=== PATIENT | male | born 1940 | race Native Hawaiian/Other Pacific Islander ===

== ENCOUNTER 2018-07-03 18:38 | Inpatient (IN) | payer MEDICARE, OTHER ==
[~2018-07-03] VITALS: Ht 160 cm; Wt 49.4 kg
[2018-07-03] MEDS ORDERED: PROTONIX (18:51)
[2018-07-03] MEDS ORDERED: BUDESONIDE (18:51)
[2018-07-03] MEDS ORDERED: PLAVIX (18:51)
[2018-07-03] MEDS ORDERED: LOVENOX (18:51)
[2018-07-03] MEDS ORDERED: TAMSULOSIN (18:51)
[2018-07-03] MEDS ORDERED: AMLODIPINE (18:59)
--- NOTE | 2018-07-03 19:00 | NUR ---
Medication Reconciliation Note: Per pt's family pt only takes Amlodipine daily, Protonix daily, Tamsulosin daily and Plavix prn. Doses unknown.
--- NOTE | 2018-07-03 19:10 | NUR ---
REPORT RECEIVED FROM HALINA MENDOZA, LUKASZ
--- NOTE | 2018-07-03 19:40 | NUR ---
RECEIVED PT AWAKE, ALERT, ORIENTEDX3 VIA GURNEY FROM ER. PT IS ON 5150. UNDER THE CARE OF DR. STONE AND DR. PULIDO. FAMILY AT BEDSIDE. SITTER AT BEDSIDE. DX: PSYCHOSIS. BELONGING LIST DONE. ADMISSION PROCESS DONE. RESIDENTIAL ASSESSMENT DONE. SAFETY AND COMFORT PROVIDED. WILL CONTINUE TO MONITOR Addendum: 07/04/18 at 0049 by RANI GASCA RN WRONG INPUT OF TIME.
--- NOTE | 2018-07-03 20:10 | NUR ---
REPORT GIVEN TO [facility] OVERFLOW NURSE, MAHAD
--- NOTE | 2018-07-03 20:25 | NUR ---
Pt. admitted to [facility], under care of Dr. BECKWITH/ASHOK Belongs List completed
--- NOTE | 2018-07-03 20:40 | NUR ---
RECEIVED PT AWAKE, ALERT, ORIENTEDX3 VIA GURNEY FROM ER. PT IS ON 5150. UNDER THE CARE OF DR. STONE AND DR. PULIDO. FAMILY AT BEDSIDE. SITTER AT BEDSIDE. DX: PSYCHOSIS. BELONGING LIST DONE. ADMISSION PROCESS DONE. LONG TERM ASSESSMENT DONE. SAFETY AND COMFORT PROVIDED. WILL CONTINUE TO MONITOR.
[2018-07-03 20:45] VITALS: BP 137/57
[2018-07-03] MEDS ORDERED: LORAZEPAM 0.5 MG TABLET PO PRN (21:15)
[2018-07-03] MEDS ORDERED: TEMAZEPAM 7.5 MG CAPSULE PO PRN (21:15)
[2018-07-03] MEDS ORDERED: MAGNESIUM HYDROXIDE 30 ML LIQUID UDC PO PRN (21:15)
[2018-07-03] MEDS ORDERED: MAG HYDROX/AL HYDROX/SIMETH 30 ML LIQUID UDC PO PRN (21:15)
[2018-07-03] MEDS ORDERED: ACETAMINOPHEN 325 MG TABLET PO PRN (21:15)
--- NOTE | 2018-07-04 05:33 | NUR ---
PT CELLPHONE AND 6 PIECES OF HERBAL MEDICATION THAT HAS AGUILLON WRAPPERS WERE PUT AT [facility] LOCKER #4. PT STABLE . SITTER AT BEDSIDE. WILL CONTINUE TO MONITOR.
--- NOTE | 2018-07-04 06:09 | NUR ---
PT SLEPT 4 HOURS AND 45 MINUTES. PT SHOWS NO SIGNS OF DISTRESS.SITTER AT BEDSIDE. PT COOPERATIVE WITH CARE. PRESCRIBED MEDICATION GIVEN AND PT TOLERATED IT WELL. SAFETY AND COMFORT PROVIDED. WILL ENDORSE TO INCOMING NURSE FOR CONTINUITY OF CARE.
[2018-07-04 06:36] LABS: BASOPHILS % (AUTO) 0.5 % (0.0-2.0); EOSINOPHILS # (AUTO) 0.2 K/uL (0.0-0.7); EOSINOPHILS % (AUTO) 4.6 % (0.0-7.0); HEMATOCRIT 36.8 % (36.7-47.1); HEMOGLOBIN 12.6 g/dL (12.5-16.3); LYMPHOCYTES # (AUTO) 1.5 K/uL (20.0-40.0); LYMPHOCYTES % (AUTO) 28.6 % (20.5-51.5); MEAN CORPUSCULAR HEMOGLOBIN 32.2 uug (23.8-33.4); MEAN CORPUSCULAR HGB CONC 34 g/dL (32.5-36.3); MEAN CORPUSCULAR VOLUME 93.7 fL (73.0-96.2); MONOCYTES # (AUTO) 0.6 K/uL (2.0-10.0); MONOCYTES % (AUTO) 11.6 % (0.0-11.0); NEUTROPHILS # (AUTO) 2.8 K/uL (1.8-8.9); NEUTROPHILS % (AUTO) 54.7 % (38.5-71.5); PLATELET COUNT (AUTO) 197 K/uL (152-348); RED BLOOD CELL COUNT(AUTO) 3.93 MIL/uL (4.06-5.63); WHITE BLOOD COUNT (AUTO) 5.2 K/uL (3.6-10.2)
[2018-07-04 06:45] LABS: CARBON DIOXIDE 26 mmol/L (21-32); CHLORIDE 102 mmol/L (98-107); CREATININE 1.2 mg/dL (0.6-1.3); GLUCOSE 98 mg/dL (74-106); MAGNESIUM 1.7 mg/dL (1.8-2.4); PHOSPHOROUS 3.5 mg/dL (2.5-4.9); POTASSIUM 3.9 mmol/L (3.5-5.1); UREA NITROGEN, BLOOD 22 mg/dL (7-18)
[2018-07-04 07:30] VITALS: BP 135/70
[2018-07-04] MEDS ORDERED: DUTA0.5C PO (12:16)
[2018-07-04] MEDS ORDERED: ESOM40CA PO (12:16)
[2018-07-04] MEDS ORDERED: CLOP75TA15 PO (12:16)
[2018-07-04] MEDS ORDERED: ROSU40TA PO (12:16)
[2018-07-04] MEDS ORDERED: CHOL10002 PO (12:16)
[2018-07-04] MEDS ORDERED: TAMS-3 PO (12:16)
[2018-07-04] MEDS ORDERED: AMLO1TAB36 PO (12:16)
[2018-07-04] MEDS ORDERED: FEBU40TA PO (12:16)
[2018-07-04] MEDS: QUETIAPINE FUMARATE 25 MG TABLET PO SCH ×2 (13:27→20:21)
--- NOTE | 2018-07-04 13:27 | NUR ---
Pt is currently living at home with his [[address] [place] [address]] Per pt, he would like to return home when ready for discharge. FILIPPO will speak with patient's granddaughter, Basilio ([phone]). FILIPPO will continue to collaborate with pt, family, and MD regarding appropriate discharge plans for this patient. FILIPPO will form a safe and proper discharge plan. Addendum: 07/04/18 at 1459 by ABEBE BARKLEY Initial Discharge Instructions
[2018-07-04] MEDS ORDERED: MAGNESIUM OXIDE 400 MG TABLET PO ONE (13:45)
[2018-07-04 14:29] VITALS: BP 127/59
[2018-07-04] MEDS ORDERED: [UNRECOGNIZED DRUG - OTHER] PO SCH (17:00)
[2018-07-04] MEDS ORDERED: Medication Not On Formulary EA (Esomeprazole Mag Trihydrate (Nexium) 40 MG) PO SCH (17:00)
[2018-07-04] MEDS ORDERED: AMLODIPINE PO SCH (17:00)
[2018-07-04] MEDS ORDERED: OLMESARTAN PO SCH (17:00)
[2018-07-04] MEDS: CLOPIDOGREL 75 MG TABLET PO SCH (17:20)
[2018-07-04] MEDS: CHOLECALCIFEROL 1,000 UNIT TABLET PO SCH (17:21)
[2018-07-04] MEDS: DUTASTERIDE 0.5 MG CAPSULE PO SCH (17:21)
[2018-07-04 19:58] VITALS: BP 136/65
[2018-07-04] MEDS: TAMSULOSIN HCL 0.4 MG CAP.SR.24H PO SCH (20:23)
[2018-07-04] MEDS: ATORVASTATIN 40 MG TABLET PO SCH (20:23)
[2018-07-04] MEDS ORDERED: Medication Not On Formulary EA (Rosuvastatin Calcium (Crestor) 40 MG) PO SCH (21:00)
[2018-07-05] MEDS: PANTOPRAZOLE SODIUM 40 MG TABLET.DR PO SCH (06:14)
--- NOTE | 2018-07-05 06:37 | NUR ---
No changes throughout the night. Pt remained compliant and cooperative with all care. Safe environment implemented. 1:1 sitter at bedside for safety .
[2018-07-05 07:07] VITALS: BP 135/64
[2018-07-05] MEDS: CLOPIDOGREL 75 MG TABLET PO SCH (08:31)
[2018-07-05] MEDS: DUTASTERIDE 0.5 MG CAPSULE PO SCH (08:32)
[2018-07-05] MEDS: QUETIAPINE FUMARATE 25 MG TABLET PO SCH ×2 (08:32→20:48)
[2018-07-05] MEDS: CHOLECALCIFEROL 1,000 UNIT TABLET PO SCH (08:32)
[2018-07-05] MEDS: AMLODIPINE 10 MG TABLET PO SCH (08:33)
[2018-07-05] MEDS: LOSARTAN POTASSIUM 50 MG TABLET PO SCH (08:33)
[2018-07-05 11:38] VITALS: BP 107/53
--- NOTE | 2018-07-05 12:46 | NUR ---
CALLED AND SPOKE WITH PATIENTS GRAND DAUGHTER SKYLER AND NOTIFIED HER THAT THE [facility] WANTS SOMEONE TO BRING IN PATIENTS OWN MEDICATION ULORIC SINCE IT IS NOT AVAILABLE HERE AND SHE STATED OKAY WILL BRING SOON THERE IS SOMEONE COMING HERE.
--- NOTE | 2018-07-05 15:34 | NUR ---
PATIENTS SON IS AT THE BEDSIDE AND CONFIRMED THAT THE ULORIC WILL BE BROUGHT IN BY THE GRAND DAUGHTER TOMORROW PHARMACY AWARE.
[2018-07-05 16:31] VITALS: BP 118/64
--- NOTE | 2018-07-05 18:06 | NUR ---
PATIENT ATE LARGE AMOUNTS OF FOOD BROUGHT IN BY HIS FAMILY COMFORTABLE WITH NO DISTRESS AT THIS TIME.
[2018-07-05 20:00] VITALS: BP 118/64
[2018-07-05] MEDS: TAMSULOSIN HCL 0.4 MG CAP.SR.24H PO SCH (20:43)
[2018-07-05] MEDS: ATORVASTATIN 40 MG TABLET PO SCH (20:46)
[2018-07-06] MEDS: PANTOPRAZOLE SODIUM 40 MG TABLET.DR PO SCH (06:33)
--- NOTE | 2018-07-06 06:45 | NUR ---
Pt remains pleasant and compliant with all care. Stable condition. According to granddaughter, pt has not taken Uloric medication at home for over a year, family only has empty bottle. Safe environment implemented.
--- NOTE | 2018-07-06 07:45 | NUR ---
AWAKE ALERT COOPERATIVE AND COMPLIANT WITH MEDICATIONS AND CARE DENIES SI AT THIS TIME REMAIN ON 72 HOURS HOLD WILL CONTINUE TO PROVIDE SAFE AND THERAPEUTIC ENVIRONMENT AT ALL TIMES
[2018-07-06 08:00] VITALS: BP 120/65
[2018-07-06] MEDS: CHOLECALCIFEROL 1,000 UNIT TABLET PO SCH (08:16)
[2018-07-06] MEDS: DUTASTERIDE 0.5 MG CAPSULE PO SCH (08:16)
[2018-07-06] MEDS: QUETIAPINE FUMARATE 25 MG TABLET PO SCH ×2 (08:16→20:29)
[2018-07-06] MEDS: CLOPIDOGREL 75 MG TABLET PO SCH (08:16)
[2018-07-06] MEDS: AMLODIPINE 10 MG TABLET PO SCH (08:17)
[2018-07-06] MEDS: LOSARTAN POTASSIUM 50 MG TABLET PO SCH (08:17)
--- NOTE | 2018-07-06 08:59 | NUR ---
CALLED AND NOTIFIED THE PHARMACIST THAT ACCORDING TO THE NOC RN PATIENT HAS NOT BEEN TAKING ULORIC FOR MORE THAN A YEAR NOW.
--- NOTE | 2018-07-06 09:04 | NUR ---
INFORMED DR PULIDO RE PATIENT IS USING CALAMINE LOTION BROUGHT HIS FROM HOME BUT NO ORDER AT THIS TIME AND HE STATED TO START TO THE RASHES ON HIS LEFT ARM.
[2018-07-06] MEDS ORDERED: CALAMINE LOTION 120 ML BOTTLE TOP SCH (09:30)
--- NOTE | 2018-07-06 10:03 | NUR ---
DR ARGUETA HERE TO SEE PATIENT WITH ORDER FOR 14 DAY HOLD AND NOTED MHU NOTIFIED.
[2018-07-06] MEDS: CALAMINE LOTION TOP SCH ×2 (11:16→21:30)
--- NOTE | 2018-07-06 14:00 | NUR ---
PATIENTS GRAND DAUGHTER AND SON HERE AND SEEN THE 14 DAY HOLD AND CONCERNED THAT SINCE THE PATIENT SPOKE ONLY SPANISH LANGUAGE HOW DID THE DOCTOR COMMUNICATE WITH THE PATIENT TO COME TO THE CONCLUSION OF THE WORDING OF THE HOLD SINCE THE PATIENT DID NOT SPEAK ANY AZERI ATTEMPTS TO REASSURE HER THAT THE COURTS WILL BE HERE TO DETERMINE ON THE HOLD AND I WILL LEAVE A NOTE FOR DR ARGUETA TO CALL HER TOMORROW THE MHU RN WAS NOTIFIED OF ALL OF THE FAMILIES CONCERN.
[2018-07-06 15:52] VITALS: BP 117/52
--- NOTE | 2018-07-06 17:51 | NUR ---
PATIENT IS RESTING WITH NO DISTRESS COOPERATIVE AT THIS TIME REMAIN ON HOLD ORDERED.
[2018-07-06 19:00] VITALS: BP 119/70
[2018-07-06 20:00] VITALS: BP 119/70
--- NOTE | 2018-07-06 20:00 | NUR ---
RECD PT IN BED, AWAKE,ALERT AND RESPONSIVE, NEEDS ATTENDED TO, ON 14 DAY HOLD TILL 07/20,1:1 SITTER AT BEDSIDE. NO SUICIDAL IDEATION OBSERVED.VITALS TAKEN AND RECORDED.NO ACUTE DISTRESS NOTED.
[2018-07-06] MEDS: ATORVASTATIN 40 MG TABLET PO SCH (20:28)
[2018-07-06] MEDS: TAMSULOSIN HCL 0.4 MG CAP.SR.24H PO SCH (20:28)
--- NOTE | 2018-07-06 21:08 | NUR ---
DUE MEDS GIVEN, UP TO BR, VOIDING FREELY WELL.CALAMINE LOTION TO PATCHY SKIN ON LEFT ARM.
--- NOTE | 2018-07-06 23:43 | NUR ---
SLEPT AT SHORT INTERVALS,NO COMPLAINTS PRESENTED.
[2018-07-07] MEDS: PANTOPRAZOLE SODIUM 40 MG TABLET.DR PO SCH (06:35)
--- NOTE | 2018-07-07 06:36 | NUR ---
SLEPT 11HOURS TOTAL, UNEVENTFUL NOC.
--- NOTE | 2018-07-07 07:35 | NUR ---
RECEIVED PATIENT SITTING UP ON THE CHAIR AWAKE ALERT AND AWARE WITH LANGUAGE BARRIER ALL NEEDS ANTICIPATED AND SATISFIED.COMPLAINT AND COOPERATIVE REMAIN ON ONE ON ONE SITTER FOR SAFETY AND REMAIN ON HOLD ORDERED.
[2018-07-07 08:00] VITALS: BP 124/64
[2018-07-07] MEDS: CHOLECALCIFEROL 1,000 UNIT TABLET PO SCH (08:02)
[2018-07-07] MEDS: CLOPIDOGREL 75 MG TABLET PO SCH (08:02)
[2018-07-07] MEDS: QUETIAPINE FUMARATE 25 MG TABLET PO SCH ×2 (08:02→20:19)
[2018-07-07] MEDS: DUTASTERIDE 0.5 MG CAPSULE PO SCH (08:02)
[2018-07-07] MEDS: AMLODIPINE 10 MG TABLET PO SCH (08:03)
[2018-07-07] MEDS: LOSARTAN POTASSIUM 50 MG TABLET PO SCH (08:03)
[2018-07-07] MEDS: CALAMINE LOTION TOP SCH ×2 (08:04→20:19)
--- NOTE | 2018-07-07 11:45 | NUR ---
DR ARGUETA HERE TO SEE PATIENT AND I NOTIFIED HIM OF THE DISCUSSIONS THAT I HAD WITH THE PATIENTS SON AND GRAND DAUGHTER GILMA ABOUT THE [address]MENTS AND DR ARGUETA STATED THAT HE SPOKE WITH THIS SAME GRAND DAUGHTER 2 DAYS AGO SO FORTUNATELY HE CALLED THE GRAND DAUGHTER TO TALK WITH HER SHE STATED THAT SHE IS HERE IN THE HOSPITAL SO DR ARGUETA MET WITH HER IN THE ROOM AND SHE DID CONFIRM THAT DR ARGUETA HAD MET WITH HER AND SHE HAD TRANSLATED FOR HER GRAND FATHER AT THAT TIME SO NOW THE PLAN IS THAT SOON THE DATE FOR THE HEARING IS CONFIRMED THEN THE FAMILY WILL BE NOTIFIED BECAUSE THEY WANT TO BE HERE PRESENT.
[2018-07-07 14:00] VITALS: BP 109/55
--- NOTE | 2018-07-07 14:49 | NUR ---
PATIENTS OWN CELL PHONE RETRIEVED FROM THE [employer] [facility]OCKER REQUESTED BY THE PATIENTS GRAND DAUGHTER GILMA SHE WANTS TO TAKE IT HOME SINCE PATIENT IS NOT ALLOWED TO USE IT WHILE ON HOLD. THE PHONE WAS GIVEN TO THE PATIENTS SON GILBERT AND HE SIGNED THAT HE RECEIVED IT AND PATIENTS GRAND DAUGHTER WAS ALSO HERE AND AWARE.
--- NOTE | 2018-07-07 18:19 | NUR ---
ASSISTED WITH AMBULATION IN THE HALLWAY WITH STEADY GAIT LANGUAGE CONTINUE TO BE A BARRIER BUT IS COOPERATIVE AND COMPLIANT WILL CONTINUE TO OBSERVE PATIENT AND PROVIDE A SAFE AND THERAPEUTIC ENVIRONMENT AT ALL TIMES.
[2018-07-07 19:00] VITALS: BP 113/50
--- NOTE | 2018-07-07 19:30 | NUR ---
Patient stable at start of shift with no acute distress noted. Vital signs within range. Patient is a GPS overflow with a 1:1 sitter at the bedside for safety. Patient is A/O, however, unable to communicate & speak Guamanian. Patient is on a 5250 until 07/20/18. Room checked for safety at beginning of shift. Will continue to monitor through shift.
[2018-07-07] MEDS: ATORVASTATIN 40 MG TABLET PO SCH (20:19)
[2018-07-07] MEDS: TAMSULOSIN HCL 0.4 MG CAP.SR.24H PO SCH (20:19)
[2018-07-08] MEDS: PANTOPRAZOLE SODIUM 40 MG TABLET.DR PO SCH (06:18)
--- NOTE | 2018-07-08 06:34 | NUR ---
Patient slept total of 7 hours during the night. No acute distress noted. 1:1 sitter at the bedside for safety. Compliant with care. All medications administered per MD order. All needs attended to. Comfort & safety measures provided. Will endorse accordingly to oncoming shift.
--- NOTE | 2018-07-08 07:40 | NUR ---
PATIENT IS SITTING UP ON THE BED AWAKE ALERT AND ORIENTED DENIES PAIN OR DISCOMFORTS AT THIS TIME.LAERT AND ORIENTED BUT CONTINUES TO HAVE LANGUAGE BARRIERS SPEAKS MOSTLY TURKMEN GESTURES USED TO COMMUNICATE WITH HIM COOPERATIVE AND COMPLIANT AT THIS TIME WILL CONTINUE TO HAVE SAFE AND THERAPEUTIC ENVIRONMENT AT ALL TIMES.
[2018-07-08 08:00] VITALS: BP 137/71
[2018-07-08] MEDS: CHOLECALCIFEROL 1,000 UNIT TABLET PO SCH (08:20)
[2018-07-08] MEDS: DUTASTERIDE 0.5 MG CAPSULE PO SCH (08:20)
[2018-07-08] MEDS: CLOPIDOGREL 75 MG TABLET PO SCH (08:20)
[2018-07-08] MEDS: QUETIAPINE FUMARATE 25 MG TABLET PO SCH (08:21)
[2018-07-08] MEDS: AMLODIPINE 10 MG TABLET PO SCH (08:21)
[2018-07-08] MEDS: LOSARTAN POTASSIUM 50 MG TABLET PO SCH (08:22)
[2018-07-08] MEDS: CALAMINE LOTION TOP SCH ×2 (08:23→20:48)
--- NOTE | 2018-07-08 10:41 | NUR ---
PATIENT REMAINS COMPLIANT AND COOPERATIVE MADE COMFORTABLE WILL CONTINUE TO OBSERVE.
--- NOTE | 2018-07-08 12:30 | NUR ---
Discharge Note: rigging worker followed up with a phone call to Pt granddaughter, Basilio ([phone]), regarding Pt tentative d/c plan. Basilio states that Pt will return home with his ([address] [place] [address]). Basilio states that either herself or Pt's son, Carlos ([phone]), will provide transportation to home once the pt is ready. Per Basilio, prior to current hospitalization, Pt was ambulatory and independent with ADLs. Pt granddaughter, Basilio, expressed concern over the care of Pt. Basilio states that she is concerned that the attending psychiatrist over the weekend had not been using the [employer] system for translation. Basilio further stated that because her father is Yi-speaking, that the psychiatrist could not have been able to properly assess Pt without using the translation system. Basilio did not express wanting to file a formal complaint. Basilio further stated that her and her family would like to be in attendance of Pt's PC hearing. PC hearing has yet to be scheduled. rigging worker will inform Pt family once hearing has been scheduled. rigging worker will continue to plan a safe and proper d/c for Pt.
--- NOTE | 2018-07-08 13:59 | NUR ---
Discharge Note: edge worker received phone call from attending psychiatrist, Dr. Skinner, who stated that Pt is doing better. Dr. Skinner is taking pt off of Seroquel and starting Pt on a "light" antidepressant with dinner. Dr. Skinner will monitor Pt progress and is anticipating a d/c by July 10. edge worker, per psychiatrist request, relayed information to Pt granddaughter, Samantha ([phone]). Saamntha was agreeable with information and appreciated follow-up phone call. edge worker will continue to following Pt and working on a safe and proper d/c for Pt when ready.
--- NOTE | 2018-07-08 14:00 | NUR ---
DR STONE HERE TO SEE PATIENT WITH NEW ORDERS AND PATIENT WAS SPOKEN TO VIA AN CREATIVE GURU AND HE SIGNED THE CONSCENT.
--- NOTE | 2018-07-08 14:43 | NUR ---
Discharge Note: community development worker faxed physician order for home health services (med management & psych nurse eval) to [facility], contact Elizabeth, (F# [phone], ph #[phone]. community development worker will await approval.
--- NOTE | 2018-07-08 15:18 | NUR ---
PATIENT IS PSYCH OVER FLOW AND TRANSFERED TO ROOM 141 A DUE TO AVAILABILITY OF ROOM AT THIS TIME WILL INFORM HER GRAND DAUGHTER TOORI
[2018-07-08 16:00] VITALS: BP 157/56
[2018-07-08 16:18] LABS: *BILIRUBIN,URIN NEGATIVE (NEGATIVE); *BLOOD, URINE Trace-lysed (NEGATIVE); *CLARITY,URINE SLIGHTLY CLOUDY (CLEAR); *COLOR,URINE YELLOW (YELLOW); *KETONES,URINE NEGATIVE (NEGATIVE); *PROTEIN,URINE NEGATIVE (NEGATIVE); *UROBILINOGEN,URINE 0.2 E.U./dl (NORMAL); LEUKOCYTE ESTERASE ,URINE NEGATIVE (NEGATIVE); NITRITE, URINE NEGATIVE (NEGATIVE); PH,URINE 5.5 (5.0-8.0); UGLUCOSE NEGATIVE (NEGATIVE)
[2018-07-08 17:25] LABS: MUCUS,URINE MODERATE /LPF (0-FEW); RBC,URINE 0-3 /HPF (0-3); URIC ACID CRYSTALS,URINE MANY /HPF (NONE SEEN); WBC,URINE NONE SEEN /HPF (0-3)
[2018-07-08] MEDS: SERTRALINE HCL 50 MG TABLET PO SCH (17:27)
[2018-07-08 19:30] VITALS: BP 121/50
[2018-07-08] MEDS: ATORVASTATIN 40 MG TABLET PO SCH (20:40)
[2018-07-08] MEDS: TAMSULOSIN HCL 0.4 MG CAP.SR.24H PO SCH (20:40)
[2018-07-09] MEDS: PANTOPRAZOLE SODIUM 40 MG TABLET.DR PO SCH (06:10)
[2018-07-09 07:27] LABS: BASOPHILS % (AUTO) 0.7 % (0.0-2.0); EOSINOPHILS # (AUTO) 0.4 K/uL (0.0-0.7); EOSINOPHILS % (AUTO) 6.3 % (0.0-7.0); HEMATOCRIT 35.9 % (36.7-47.1); HEMOGLOBIN 12.3 g/dL (12.5-16.3); LYMPHOCYTES # (AUTO) 1.9 K/uL (20.0-40.0); LYMPHOCYTES % (AUTO) 32.4 % (20.5-51.5); MEAN CORPUSCULAR HGB CONC 34 g/dL (32.5-36.3); MEAN CORPUSCULAR VOLUME 96.1 fL (73.0-96.2); MONOCYTES # (AUTO) 0.5 K/uL (2.0-10.0); NEUTROPHILS % (AUTO) 52.6 % (38.5-71.5); PLATELET COUNT (AUTO) 235 K/uL (152-348); RED BLOOD CELL COUNT(AUTO) 3.74 MIL/uL (4.06-5.63); WHITE BLOOD COUNT (AUTO) 5.8 K/uL (3.6-10.2)
[2018-07-09 07:30] VITALS: BP 138/63
[2018-07-09 08:01] LABS: ALANINE AMINOTRANSFERASE 33 U/L (16-63); ALKALINE PHOSPHATASE 88 U/L (50-136); ASPARTATE AMINOTRANSFERASE 30 U/L (15-37); BILIRUBIN,TOTAL 0.6 mg/dL (0.2-1.0); CARBON DIOXIDE 26 mmol/L (21-32); CHLORIDE 103 mmol/L (98-107); CHOLESTEROL 143 mg/dL (<200); CREATININE 1.2 mg/dL (0.6-1.3); GLUCOSE 102 mg/dL (74-106); HDL CHOLESTEROL 39 mg/dL (40-60); MAGNESIUM 1.9 mg/dL (1.8-2.4); POTASSIUM 4.3 mmol/L (3.5-5.1); TOTAL PROTEIN, SERUM 6.6 g/dL (6.4-8.2); TRIGLYCERIDES 72 MG/DL (30-150); UREA NITROGEN, BLOOD 24 mg/dL (7-18)
[2018-07-09] MEDS: DUTASTERIDE 0.5 MG CAPSULE PO SCH (09:03)
[2018-07-09] MEDS: CHOLECALCIFEROL 1,000 UNIT TABLET PO SCH (09:22)
[2018-07-09] MEDS: LOSARTAN POTASSIUM 50 MG TABLET PO SCH (09:23)
[2018-07-09] MEDS: CLOPIDOGREL 75 MG TABLET PO SCH (09:23)
[2018-07-09] MEDS: AMLODIPINE 10 MG TABLET PO SCH (09:23)
--- NOTE | 2018-07-09 10:37 | NUR ---
Discharge Note: torpedo worker attempted to find out who Pt's PCP is through granddaughter, Basilio ([phone]), however, she did not know who PCP was. Basilio will email social psychologist later with PCP information. Per MD, d/c will be tomorrow and grandlongughter has been made aware and is able to order picker Pt tomorrow, 07/10 between 12:30-1:00 and take him home. torpedo worker will continue to plan a safe and proper d/c for Pt.
[2018-07-09] MEDS: CALAMINE LOTION TOP SCH ×2 (10:59→20:05)
--- NOTE | 2018-07-09 15:08 | NUR ---
Firearms Report: Boat Diesel Motor Mechanic completed and submitted [employer]arms Report on 07/09/18 for 5150 DTS certification.
[2018-07-09 16:21] VITALS: BP 109/56
[2018-07-09] MEDS: SERTRALINE HCL 50 MG TABLET PO SCH (18:01)
[2018-07-09] MEDS: TAMSULOSIN HCL 0.4 MG CAP.SR.24H PO SCH (20:04)
[2018-07-09 20:42] VITALS: BP 126/62
[2018-07-09] MEDS ORDERED: ATORVASTATIN 40 MG TABLET PO SCH (21:00)
--- NOTE | 2018-07-09 22:00 | NUR ---
received to care, lying in bed, isolative, but pleasant upon approach. compliant with medications and staff direction. as of 2200, he appears asleep. no distress noted. will continue to monitor closely.
[2018-07-10] MEDS: PANTOPRAZOLE SODIUM 40 MG TABLET.DR PO SCH (06:20)
--- NOTE | 2018-07-10 06:54 | NUR ---
slept 3.5 hours. assisted with am care, and shower. no distress noted.
[2018-07-10] MEDS: LOSARTAN POTASSIUM 50 MG TABLET PO SCH (08:21)
[2018-07-10] MEDS: CLOPIDOGREL 75 MG TABLET PO SCH (08:22)
[2018-07-10] MEDS: AMLODIPINE 10 MG TABLET PO SCH (08:22)
[2018-07-10] MEDS: CHOLECALCIFEROL 1,000 UNIT TABLET PO SCH (08:22)
[2018-07-10] MEDS: CALAMINE LOTION TOP SCH (08:22)
[2018-07-10] MEDS: DUTASTERIDE 0.5 MG CAPSULE PO SCH (08:22)
[2018-07-10 08:27] VITALS: BP 121/54
--- NOTE | 2018-07-10 08:43 | NUR ---
Discharge note: Patient will be discharged to home [[address] [place] [address]] and transportation will be provided by his son Tiago [[phone]] at 11:00am. public health outreach worker has faxed HH order for med management and psych nurse evaluation to [facility] (fax: [phone]). public health outreach worker has spoken with Elizabeth ([phone]) at [facility] and is awaiting plan for start of care. Patient is aware and agreeable with discharge plans. Spoke with patients granddaughter, Basilio, who is also aware and agreeable with discharge plans. Patient is alert and oriented x4 and denies any SI/HI. Patient will follow-up as an outpatient with Dr. Merlin Velez ([phone]). Pt currently does not have an outpatient psychiatrist. public health outreach worker provided Pt with a list of Medicare accepting psychiatrists in Pts local area. Patient was given outpatient mental health resources to [facility] [ ], Nisha Lawrence [ ], and the National Suicide Prevention Lifeline [ ]. Pt has been made aware of all resources and referrals.
--- NOTE | 2018-07-10 11:05 | NUR ---
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 and Psychiatrist as recommended. Support group provided. Patient in good spirit, denies SI /HI all belongings given back to patient.No complaints noted. Discharged to home via private car.
--- NOTE | 2018-07-11 10:50 | NUR ---
Discharge follow-up: gas utility worker received follow-up from Elizabeth ([phone]) [facility] that Pt was approved for services. However, per Elizabeth, HH through [facility] was not approved by Pt's PCP as he would only sign with a Hungarian-speaking agency. PCP has arranged for Pt to receive HH services through [facility], a Hungarian-speaking HH agency.
== END 2018-07-10 11:11 | disposition home health service (06) | DRG 881 ==
LOC: ER 18:43 → GPSOV 20:16 → GPS 07-08 15:13
PROVIDERS: ADMIT Psychiatry & Neurology Psychosomatic Medicine; ATTEND Internal Medicine
DX: F32.9 Major depressive disorder, single episode, unspecified (principal); I11.0 Hypertensive heart disease with heart failure; T46.1X Poisoning by, adverse effect of and underdosing of calcium-channel blockers; J44.9 Chronic obstructive pulmonary disease, unspecified; Z79.02 Long term (current) use of antithrombotics/antiplatelets; I50.9 Heart failure, unspecified; H40.9 Unspecified glaucoma; N40.0 Benign prostatic hyperplasia without lower urinary tract symptoms; M10.9 Gout, unspecified; I25.10 Atherosclerotic heart disease of native coronary artery without angina pectoris; F03.90 Unspecified dementia, unspecified severity, without behavioral disturbance, psychotic disturbance, mood disturbance, and anxiety; E83.42 Hypomagnesemia; E78.5 Hyperlipidemia, unspecified; R79.89 Other specified abnormal findings of blood chemistry
CPT/HCPCS: 36415; 71045; 83735; 84100; 84443; 85025; 87086; A4663